=== PATIENT | male | born 1985 | race African-American/Black ===

== ENCOUNTER 2019-10-21 19:13 | Emergency (ER) | payer SELFPAY ==
[~2019-10-21] VITALS: Ht 165.1 cm; Wt 104.5 kg
[2019-10-21 19:43] VITALS: BP 149/89
[2019-10-21 19:50] LABS: BILIRUBIN,URINE SMALL (NEG); CLARITY,URINE CLEAR; COLOR,URINE AMBER; NITRITE,URINE NEGATIVE (NEG); PROTEIN,URINE 30 mg/dL (NEG-TRACE)
[2019-10-21 19:59] LABS: HYALINE CASTS, URINE FEW /HPF; SQUAMOUS EPITHELIAL CELL,UR FEW /LPF
[2019-10-21 20:00] LABS: BACTERIA,URINE 0 /HPF (0-FEW); RBC,URINE 0 /HPF (0-2)
--- NOTE | 2019-10-21 20:28 | PHYS DOC ---
Past Medical History Past Medical History: Hypertension, Seizure (HÉCTOR HARRIS APRN) Past Surgical History: Tonsillectomy (HÉCTOR HARRIS APRN) Smoking Status: Never Smoker Alcohol Use: None (HÉCTOR HARRIS APRN) Attending Signature I have participated in the care of this patient and I have reviewed and agree with all pertinent clinical information above including history, exam, and recommendations. (JORGE CARR MD) Adult General Chief Complaint Chief Complaint: TESTICULAR PAIN OR INJURY HPI HPI Patient is a 34 year old male with history of hypertension, seizures, who presents to the ED today complaining of left testicular swelling and soreness that he noted is morning when he woke up. Patient denies any concerns for STDs. (HÉCTOR HARRIS APRN) Review of Systems Review of Systems Constitutional: Denies fever or chills [] GI: Denies abdominal pain, nausea, vomiting, bloody stools or diarrhea [] : Reports left testicular swelling and soreness. Denies dysuria or hematuria [] Musculoskeletal: Denies back pain or joint pain [] Integument: Denies rash or skin lesions [] Neurologic: Denies headache, focal weakness or sensory changes [] All other systems were reviewed and found to be within normal limits, except as documented in this note. (HÉCTOR HARRIS APRN) Current Medications Current Medications Current Medications Medications (Trade) Dose Ordered Sig/Luis Start Time Stop Time Status Last Admin Dose Admin Azithromycin (Zithromax) 1,000 mg 1X ONCE 10/21/19 21:00 10/21/19 21:01 DC 10/21/19 20:56 1,000 MG Ceftriaxone Sodium (Rocephin Im) 1 gm 1X ONCE 10/21/19 21:00 10/21/19 21:01 DC 10/21/19 20:56 1 GM (JORGE CARR MD) Allergies Allergies Allergies Coded Allergies Type Severity Reaction Last Updated Verified No Known Drug Allergies 10/21/19 No (JORGE CARR MD) Physical Exam Physical Exam Constitutional: Well developed, well nourished, no acute distress, non-toxic appearance. [] Abdomen: Bowel sounds normal, soft, no tenderness, no masses, no pulsatile masses. [] Male exam-External with no obvious acute finds. Tenderness to the Left testicle. No erythema. Both testicles feel larger than normal. Skin: Warm, dry, no erythema, no rash. [] Back: No tenderness, no CVA tenderness. [] Extremities: No tenderness, no cyanosis, no clubbing, ROM intact, no edema. [] Neurologic: Alert and oriented X 3, normal motor function, normal sensory function, no focal deficits noted. [] Psychologic: Affect normal, judgement normal, mood normal. [] (HÉCTOR HARRIS APRN) Current Patient Data Vital Signs Vital Signs Date Time Temp Pulse Resp B/P (MAP) Pulse Ox O2 Delivery O2 Flow Rate FiO2 10/21/19 19:43 98.2 62 16 149/89 (109) 99 Room Air 98.2 (JORGE CARR MD) Lab Values Laboratory Tests Test 10/21/19 19:40 Urine Collection Type Unknown Urine Color [place] Urine Clarity Clear Urine pH 6.0 Urine Specific [place] >=1.030 Urine Protein 30 mg/dL (NEG-TRACE) Urine Glucose (UA) Negative mg/dL (NEG) Urine Ketones (Stick) Negative mg/dL (NEG) Urine Blood Negative (NEG) Urine Nitrite Negative (NEG) Urine Bilirubin Small (NEG) Urine Urobilinogen Dipstick 1.0 mg/dL (0.2 mg/dL) Urine Leukocyte Esterase Small (NEG) Urine RBC 0 /HPF (0-2) Urine WBC 5-10 /HPF (0-4) Urine Squamous Epithelial Cells Few /LPF Urine Bacteria 0 /HPF (0-FEW) Urine Hyaline Casts Few /HPF Urine Mucus Marked /LPF (JORGE CARR MD) EKG EKG [] (HÉCTOR HARRIS APRN) Radiology/Procedures Radiology/Procedures []PROCEDURE: TESTICULAR/SCROTUM Ultrasound the scrotum. HISTORY: Left-sided swelling Ultrasound was used to evaluate the scrotum and testicles. There is no right testicular mass. There is microlithiasis with small echogenic foci in both testicles. Right epididymis is normal in size. There is a 3 mm cyst in the right epididymis. The left testicle was normal in size without a mass. Again noted are the small echogenic foci from microlithiasis. There is a left hydrocele which is moderate in size. There is a 4 mm epididymal cyst on the left. Left epididymis is enlarged. There is normal flow in the right testicle and epididymis with color imaging and Doppler. There is increased flow to the left epididymis consistent with epididymitis. IMPRESSION: 1. Testicular microlithiasis. 2. Small epididymal cysts. 3. Large left epididymis with increased blood flow consistent with epididymitis. 4. Left hydrocele. Electronically signed by: Javad Kingston MD (10/21/2019 8:40 PM) [id number] DICTATED and SIGNED BY: JAVAD KINGSTON MD DATE: 10/21/192039 (HÉCTOR HARRIS APRN) Course & Med Decision Making Course & Med Decision Making Pertinent Labs and Imaging studies reviewed. (See chart for details) This is a 34-year-old male patient presenting to the ED today complaining of left testicular swelling and soreness that began today. Urine analysis is noted for small amount of leukocytes, considering his age of 34, patient was treated for STDs. Testicular ultrasound is noted for testicular microlithiasis. Small epididymal cysts. Large left epididymis with increased blood flow consistent with epididymitis. Left hydrocele. D/c to home on Cipro for 10 days. F/u with Urology of his choice. (HÉCTOR HARRIS APRN) Dragon Disclaimer Dragon Disclaimer This electronic medical record was generated, in whole or in part, using a voice recognition dictation system. (HÉCTOR HARRIS APRN) Departure Departure Impression: Primary Impression: Urinary tract infection Additional Impressions: Hydrocele Epididymitis, left Disposition: 01 HOME, SELF-CARE Condition: STABLE Referrals: NO PCP (PCP) follow up with a urologist of your choice. [facility] does not have a urologist. Patient Instructions: Epididymitis, Urinary Tract Infection Additional Instructions: Please follow up with a urologsit at [facility] or any other hospital of your choice. Try to elevate you scrotum/testicles. Take your antibiotics to completion Scripts Ciprofloxacin Hcl (CIPRO) 500 Mg Tablet 1 TAB PO BID for 10 Days, #20 TAB 0 Refills Prov: HÉCTOR HARRIS APRN 10/21/19 Problem Qualifiers Primary Impression: Urinary tract infection Urinary tract infection type: site unspecified Hematuria presence: without hematuria Qualified Codes: N39.0 - Urinary tract infection, site not specified Additional Impressions: Hydrocele Hydrocele type: unspecified Qualified Codes: N43.3 - Hydrocele, unspecified HÉCTOR HARRIS APRN Oct 21, 2019 20:28 JORGE CARR MD Oct 21, 2019 21:36
--- NOTE | 2019-10-21 20:43 | RAD ---
Ultrasound the scrotum. HISTORY: Left-sided swelling Ultrasound was used to evaluate the scrotum and testicles. There is no right testicular mass. There is microlithiasis with small echogenic foci in both testicles. Right epididymis is normal in size. There is a 3 mm cyst in the right epididymis. The left testicle was normal in size without a mass. Again noted are the small echogenic foci from microlithiasis. There is a left hydrocele which is moderate in size. There is a 4 mm epididymal cyst on the left. Left epididymis is enlarged. There is normal flow in the right testicle and epididymis with color imaging and Doppler. There is increased flow to the left epididymis consistent with epididymitis. IMPRESSION: 1. Testicular microlithiasis. 2. Small epididymal cysts. 3. Large left epididymis with increased blood flow consistent with epididymitis. 4. Left hydrocele. Electronically signed by: Javad Alonzo MD (10/21/2019 8:40 PM) [id number]
[2019-10-21] MEDS ORDERED: CIPR500T94 PO (20:53)
[2019-10-21] MEDS ORDERED: cefTRIAXone IM 1 GM VIAL IM ONE (21:00)
[2019-10-21] MEDS ORDERED: AZITHROMYCIN 250 MG TABLET. PO ONE (21:00)
== END 2019-10-21 21:19 | disposition home or self-care (01) ==
LOC: ER 19:13
DX: N39.0 Urinary tract infection, site not specified (principal); N43.3 Hydrocele, unspecified; N45.1 Epididymitis; I10 Essential (primary) hypertension; Z90.89 Acquired absence of other organs
CPT/HCPCS: 76870; 81001; 87491; 87591; 96372; 99284; J0696